=== PATIENT | male | born 1965 | race Caucasian/White ===

== ENCOUNTER 2020-11-26 17:13 | Emergency (ER) | payer OTHER ==
[2020-11-26] MEDS ORDERED: METOPROLOL 5 MG/5 ML VIAL IVP STA ×2 (17:33→17:59)
[2020-11-26 17:38] LABS: BASOPHILS % (AUTO) 0.7 %; EOSINOPHILS # (AUTO) 0.1 10^3/uL (0.0-0.7); HCT - HEMATOCRIT 43.6 % (42.0-52.0); HGB - HEMOGLOBIN 14.1 g/dL (14.0-18.0); LYMPHOCYTES # (AUTO) 1.9 10^3/uL (1.5-3.5); LYMPHOCYTES % (AUTO) 31.7 %; MEAN CORPUSCULAR HGB CONC 32.3 g/dL (32.0-36.0); MEAN CORPUSCULAR VOLUME 86.5 fL (80.0-94.0); MEAN PLATELET VOLUME 9.5 fL (7.4-11.4); MONOCYTES # (AUTO) 0.4 10^3/uL (0.0-1.0); NEUTROPHILS # (AUTO) 3.6 10^3/uL (1.5-6.6); NEUTROPHILS % (AUTO) 59.4 %; PLT - PLATELET COUNT 213 10^3/uL (130-450); RED BLOOD COUNT 5.04 10^6/uL (4.70-6.10); RED CELL DISTRIBUTION WIDTH 13.2 % (12.0-15.0)
[2020-11-26 17:51] LABS: ALBUMIN 3.8 g/dL (3.2-5.5); ALBUMIN/GLOBULIN RATIO 1.4 (1.0-2.2); BILIRUBIN,TOTAL 1.3 mg/dL (0.2-1.0); CALCIUM 8.9 mg/dL (8.5-10.3); TOTAL PROTEIN 6.5 g/dL (6.7-8.2)
--- NOTE | 2020-11-26 17:58 | XRAY Report ---
PROCEDURE: Chest 1 View X-Ray INDICATIONS: Chest Pain TECHNIQUE: One view of the chest was acquired. COMPARISON: FINDINGS: Surgical changes and devices: None. Lungs and pleura: No pleural effusions or pneumothorax. Lungs are mildly edematous. Mediastinum: Mediastinal contours appear normal. Heart size is globally enlarged to a mild degree. Bones and chest wall: No suspicious bony lesions. Overlying soft tissues appear unremarkable. IMPRESSION: Acute CHF pattern superimposed on chronic CHF. Reviewed by: Mamadou Vick MD on 11/26/2020 5:57 PM PDT Approved by: Mamadou Vick MD on 11/26/2020 5:57 PM PDT Station ID: [id number]
[2020-11-26] MEDS ORDERED: FUROSEMIDE 20 MG/2 ML VIAL IVP STA ×2 (18:03→18:39)
--- NOTE | 2020-11-26 18:05 | ED Physician Documentation ---
History of Present Illness - Stated complaint Stated Complaint: SOA,WEAKNESS,SWELLING - Chief complaint Chief Complaint: Cardiac - Additonal information Additional information: 55-year-old male presents the emergency department for evaluation of 3 weeks progressive orthopnea and dyspnea. He reports that about 5 years ago he was diagnosed with atrial fib. He did present to a hospital in [place] at that time and was cardioverted and had remained in what he thought was sinus rhythm until now. He states that 3 weeks ago he got the mode during a vaccine and 2 days later began having bilateral leg swelling orthopnea and dyspnea. He denies exertional chest pain. Is a non-smoker. He does have a history of hypertension and morbid obesity. Meds: Metoprolol succinate 25 mg daily, 81 mg aspirin daily lisinopril 5 mg daily Lexapro 30 mg daily Review of Systems Constitutional: denies: Fever, Chills Eyes: reports: Reviewed and negative Ears: reports: Reviewed and negative Nose: reports: Reviewed and negative Throat: reports: Reviewed and negative Cardiac: reports: Palpitations, Pedal edema. denies: Chest pain / pressure, Calf pain Respiratory: reports: Dyspnea. denies: Cough, Hemoptysis, Wheezing GI: denies: Abdominal Pain, Abdominal Swelling, Nausea, Vomiting : denies: Dysuria, Frequency, Hesitancy Skin: denies: Rash, Lesions Musculoskeletal: reports: Reviewed and negative Neurologic: reports: Reviewed and negative PD PAST MEDICAL HISTORY - Present Medications Home Medications: Ambulatory Orders Medication Instructions Recorded Confirmed Aspirin [[place] Aspirin] 81 mg PO DAILY 11/26/20 11/26/20 Escitalopram [Lexapro] 30 mg PO DAILY 11/26/20 11/26/20 Furosemide [Lasix] 20 mg PO DAILY #30 tablet 11/26/20 Metoprolol Succinate [Toprol Xl] 50 mg PO DAILY #30 tablet 11/26/20 Metoprolol Tartrate [Lopressor] 25 mg PO BID 11/26/20 11/26/20 Rivaroxaban [Xarelto] 20 mg PO QDDINNER #30 tablet 11/26/20 lisinopriL [Lisinopril] 10 mg PO DAILY 11/26/20 11/26/20 - Allergies Allergies/Adverse Reactions: Allergies Allergy/AdvReac Type Severity Reaction Status Date / Time codeine Allergy Nausea Verified 11/26/20 17:17 PD ED PE EXPANDED - General General: Alert, No acute distress, Other (obese) - Cardiac Cardiac: Tachy, Irregularly irregular, Murmur Present, Radial strong equal, Pedal strong equal, Cap refill < 2 sec - Respiratory Respiratory: Clear to ausultation cleopatra. No: Distress, Labored - Abdomen Abdomen: Normal Bowel sounds. No: Tender to palpation - Extremities Extremities: Pedal edema bilateral (Pitting edema bilateral lower extremities.), Pedal Pulses Present. No: Right calf TTP/cord, Left calf TTP/cord - Neuro Neuro: Alert and Oriented X 3, CNII-XII intact - GCS Eye Opening: Spontaneous Motor: Obeys Commands Verbal: Oriented Total: 15 Results - Vitals Vitals: Vital Signs - 24 hr 11/26/20 11/26/20 11/26/20 17:19 17:36 17:45 Temperature 37.0 C Heart Rate 136 H 130 H 125 H Respiratory 18 18 21 Rate Blood Pressure 95/70 149/98 H 135/93 H O2 Saturation 100 98 98 11/26/20 11/26/20 11/26/20 17:50 18:02 18:15 Temperature Heart Rate 108 H 129 H 106 H Respiratory 15 22 20 Rate Blood Pressure 140/108 H 124/107 H 132/96 H O2 Saturation 98 97 97 11/26/20 11/26/20 11/26/20 18:20 18:45 19:15 Temperature Heart Rate 114 H 112 H 107 H Respiratory 20 20 17 Rate Blood Pressure 129/93 H 135/109 H 121/89 H O2 Saturation 97 98 97 11/26/20 19:30 Temperature Heart Rate 112 H Respiratory 25 H Rate Blood Pressure 118/96 H O2 Saturation 94 Oxygen O2 Source Room air - EKG (time done) 1722 Rate: Rate (enter#) (147) Rhythm: Atrial fibrillation [place]: Normal Intervals: Normal TN, Prolonged QT QRS: Normal Ischemia: Non specific changes Compare to prior EKG: Old EKG unavailable Computer interpretation: Agree with computer - Labs Labs: Laboratory Tests 11/26/20 11/26/20 11/26/20 17:31 17:31 17:31 WBC 6.0 RBC 5.04 Hgb 14.1 Hct 43.6 MCV 86.5 MCH 28.0 MCHC 32.3 RDW 13.2 Plt Count 213 MPV 9.5 Neut # (Auto) 3.6 Lymph # (Auto) 1.9 [place] # (Auto) 0.4 Eos # (Auto) 0.1 Baso # (Auto) 0.0 Absolute Nucleated RBC 0.00 Nucleated RBC % 0.0 Sodium 136 Potassium 4.0 Chloride 101 Carbon Dioxide 27 Anion Gap 8.0 BUN 16 Creatinine 1.0 Estimated GFR (MDRD) 78 L Glucose 95 Calcium 8.9 Total Bilirubin 1.3 H AST 23 ALT 33 Alkaline Phosphatase 56 Troponin I High Sens 22.7 H* B-Natriuretic Peptide Total Protein 6.5 L Albumin 3.8 Globulin 2.7 Albumin/Globulin Ratio 1.4 Lipase 27 11/26/20 17:31 WBC RBC Hgb Hct MCV MCH MCHC RDW Plt Count MPV Neut # (Auto) Lymph # (Auto) [place] # (Auto) Eos # (Auto) Baso # (Auto) Absolute Nucleated RBC Nucleated RBC % Sodium Potassium Chloride Carbon Dioxide Anion Gap BUN Creatinine Estimated GFR (MDRD) Glucose Calcium Total Bilirubin AST ALT Alkaline Phosphatase Troponin I High Sens B-Natriuretic Peptide 559 H Total Protein Albumin Globulin Albumin/Globulin Ratio Lipase - Rads (name of study) CXR Radiology: Final report received (Acute CHF superimposed on chronic) PD MEDICAL DECISION MAKING - ED course ED course: 55-year-old male who has a history of atrial fib presents the emergency department with 3 weeks of dyspnea on exertion and bilateral lower extremity swelling. This gentleman is typically rate controlled on 25 mg of Metroprolol's succinate daily. He is not anticoagulated. He initially presented to an outpatient walk-in clinic where they noted atrial for with a rapid rate in the 130s and 140s thus he was advised evaluation here in the ER. On presentation he does note note to be in atrial fib with a rate of 147. Initially we attempted 2 mg of Metroprolol IV due to a soft blood pressure. This did reduce his heart rate into the 120s. I did follow that up with 5 mg of Metroprolol which successfully reduced his heart rate to the 90s and low 100s. Screening labs show that he does have CHF as evidenced by an elevated BNP. His chest x-ray also suggests acute on chronic heart failure. He does have bilateral lower extremity edema. His EKG is nonischemic. High-sensitivity troponin is 22. This likely represents mild heart strain in the setting of CHF. He denies chest pain. Lower suspicion for ACS This gentleman just moved to [facility] in about 4 weeks ago. CHADS2 vasc score of 2 Putting him at moderate risk of acute stroke. I did discuss this case with our day hospitalist Dr. Correa. It is appropriate to consider admitting this patient to the hospital for a CHF exacerbation. I presented this option to the patient however he would really prefer to be discharged home. I feel that this is an appropriate given his otherwise relative stability and improved heart rate control here in the ER. He was given a total of 40 mg of Las ix here in the emergency department and observed for an additional 90 minutes. Following the 40 of Lasix he was able to ambulate and reported that his dyspnea had improved. Therefore at this time he will be discharged home. He will be started on 20 mg of Lasix daily as well as Xarelto for anticoagulation. I will increase his metoprolol succinate to 50 mg daily. He is advised to have his labs redrawn in 1 week to ensure stable kidney and potassium levels. He will return immediately to the ER if his symptoms are worsening. Departure - Departure Disposition: 01 Home, Self Care Clinical Impression: Atrial fibrillation Qualifiers: Atrial fibrillation type: unspecified chronic Qualified Code(s): I48.20 - Chronic atrial fibrillation, unspecified CHF (congestive heart failure) Qualifiers: Heart failure type: unspecified Heart failure chronicity: unspecified Qualified Code(s): I50.9 - Heart failure, unspecified Condition: Stable Record reviewed to determine appropriate education?: Yes Instructions: Atrial Fibrillation Dc Follow-Up: [facility] [Provider Group] Prescriptions: Furosemide [Lasix] 20 mg PO DAILY #30 tablet Metoprolol Succinate [Toprol Xl] 50 mg PO DAILY #30 tablet Rivaroxaban [Xarelto] 20 mg PO QDDINNER #30 tablet Comments: Urbano stockton were seen in the ER today for shortness of air for the last 3 weeks. As we discussed this is likely due to atrial fibrillation that is not well controlled. You have developed mild heart failure. You were offered the opportunity for admission to the hospital but after being given a little bit of a diuretic you did feel better. At this time it is okay to discharge you home however if your shortness of breath is not improving while at home it is important you return immediately to the ER. In order to help better manage the atrial fibrillation we will increase your Metroprolol dosing to 50 mg once daily. Please fill this and begin taking tomorrow in the morning. Because you are at Increased risk for stroke with your type of atrial fibrillation it is important that you be started on an anticoagulant or a medication that prevents you from forming clots. Your first dose of Xarelto was given here in the emergency department tonight. Please fill the prescription tomorrow and begin taking it every day in the evening with dinner. I would also like you to begin taking Lasix which is a diuretic or a medication that should help get off water weight. Please take once daily. It is also important that you begin to weigh yourself every day to check weight gain or loss. Because you are being started on a medication to prevent clots if you develop any sudden severe headache, have unexplained bruising or bleeding in your arms or legs, develop black or bloody stools or have any falls in which she strike her head it is important that you come immediately to the emergency department. Is very important that you schedule follow-up with a primary provider within the next week. Because we are starting you on Lasix it is important that your labs get rechecked to make sure that your potassium and kidney values are stable. Discharge Date/Time: 11/26/20 20:07
[2020-11-26 19:39] VITALS: BP 118/96
[2020-11-26] MEDS ORDERED: RIVAROXABAN 15 MG TABLET PO STA (19:47)
== END 2020-11-26 20:07 | disposition home or self-care (01) ==
LOC: ED 17:13
DX: I48.20 Chronic atrial fibrillation, unspecified (principal); I45.81 Long QT syndrome; I11.0 Hypertensive heart disease with heart failure; I50.9 Heart failure, unspecified; E66.01 Morbid (severe) obesity due to excess calories; Z68.43 Body mass index [BMI] 50.0-59.9, adult; Z79.82 Long term (current) use of aspirin
CPT/HCPCS: 36415; 71045; 80053; 83690; 83880; 84484; 85025; 93005; 96374; 96375; 96376; 99284; A9270

== ENCOUNTER 2021-10-18 10:52 | Outpatient (CLI) | payer OTHER ==
--- NOTE | 2021-10-18 11:45 | SLEEP CARE CONSULTATION ---
Information from patient questionnaire entered by Carli Avila. I have reviewed and concur with the information entered by Carli Avila. This document represents the service I personally performed and the decisions made by me, Elaina Kirkland ARNP. History of Present Illness Service Date and Time: 10/18/2021 1052 Reason for Visit: New patient (INITIAL, ONSET 06/1991, UNTREATED EDDIE) Chief Complaint: reports: Unrefreshed sleep, Snoring, Excessive daytime sleepine ss, Observed pauses in breathing, Fatigue, Frequent awakenings at night Date of Onset: 06/1991 Usual bedtime: 8-9 Time it takes to fall asleep: 20 MIN Snores at night: Yes Observed to quit breathing while asleep: Yes Sleeps alone due to snoring: No Number of times waking at night: 2 Reasons for waking at night: reports: Bathroom (on diuretics), Other (UNKNOWN). denies: Choking, Snoring, Gasping for air Toss, Turn, or Twitch while sleeping: Yes Recalls having dreams: Yes Usually gets out of bed at: 5AM Feels refreshed in the morning: No Morning headache: No Sleepy or fatigued during the day: Yes Ever fallen asleep while driving: No (no drowsy driving) Takes day naps: Yes (5 days week. 1-2 hours; one on Sat/Sun too) Dreams during day naps: No Prior sleep studies: Yes Year and Where: 1995 Additional HPI information: I had the pleasure of seeing Tati BENDER today regarding the possibility of him having a sleep disorder. His current complaints are excessive daytime sleepiness, fatigue, frequent awakenings at night, insomnia, observed pauses in breathing, snoring and unrefreshed sleep. He had a sleep study in 1995 and he did try the CPAP for about a month but could not tolerate the mask. He felt like it kept him from breathing, too much "in his face" and hard to get to sleep. He comes back because he has Afib, EDDIE and is obese. He knows he needs to get treatment to he "doesn't ". He has gained about 150 pounds since his last sleep study. - Parasomnia Symptoms Ever been unable to move upon waking from sleep: No Walks in sleep: No Talks in sleep: Yes Ever acted out dreams in sleep: No Ever felt weak in the knees when startled or emotional: No Bothered by creepy, crawly, restless sensations in legs: No Problems with memory or concentration: No CPAP Compliance Data Compliance data discussion: He does not uses CPAP or other therapy for his diagnosed sleep apnea. He thinks he was a mild severity in 1995. Subjective Initial [place] Sleepiness Scale score: 19 (2021) Past Medical History Past Medical History: reports: Hypertension, Congestive Heart Failure, Coronary Heart Disease, Arrythmia (Atrial Fibrillation), Anxiety, Depression Social History The patient's occupation is a [employer]. Patient is and lives in [place]. Have you smoked in the past 12 months: No Alcohol use: No Caffeine use: No Family History Family history of sleep disordered breathing: Yes Family Hx Sleep Apnea: Mother: Snoring, Sleep apnea - Treated, Father: Snoring, Sleep apnea - Treated, Sibling: Snoring, Sleep apnea - Treated, Grandparent: Snoring, Sleep apnea - Treated Allergies and Home Medications Drug allergies reviewed: Yes (codiene) Home medication list reviewed: Yes Allergy and home medication list: Allergies codeine Allergy (Verified 11/26/20 17:17) Nausea Medications: Metoprolol 20 mg in am, 10 mg in pm Amiodarone 20 mg x 2 daily Torsemide 20 mg x 3 daily escitalopram 30 mg daily Lisinopril 20 mg daily -statin for cholesterol Xarelto Review of Systems Weight gain over past 5 years: 150 Cardiovascular: reports: irregular heart rate or pulse, leg or foot swelling Neurological: denies: headaches Psychiatric: reports: anxiety, depression Ear/Nose/Throat: reports: wisdom teeth removed. denies: tonsillectomy Musculoskeletal: reports: joint pain Physical Exam Vital signs obtained and entered by: Lamar AVILA MA Blood Pressure: 122/78 (MANUAL) Cuff size: LARGE CUFF Heart Rate: 55 O2 Saturation: 96 Height: 6 ft 3 in Weight: 427 lb Body Mass Index: 53.4 BMI Classification: Morbidly Obese Neck circumference: 21 (inches) Mouth and throat: narrow oropharynx Soft palate: long Hard palate: normal Uvula: normal Uvula visualization: 50% Mallampati Class II Tongue: normal in size Tonsils: small Neck: normal w/o lymphadenopathy or thyromegaly Heart: irregular rhythm, murmur Lungs: clear bilaterally Impression and Plan 1. Suspected Obstructive Sleep Apnea-Hypopnea Syndrome, as previously diagnosed in 1995 and as suggested by a history of loud and irregular snoring, observed cessation of breath while asleep, frequent awakening during the night, unrefreshed sleep, cognitive impairment, and excessive daytime sleepiness. Patient voices that he does not think he will be able to sleep with all the leads on because he did not sleep but about 4 hours with his last one. I offered a single dose of Zolpidem for the night of the study. He states he has never taken zolpidem but those kind of medications usually really make him 'zonked out' the next day. I will order a smaller dose of 2.5 mg zolpidem and he agreed that this would be fine. Narrow oropharynx and obesity are common predisposing factors for obstructive sleep apnea-hypopnea syndrome. I recommend proceeding to polysomnography to confirm the diagnosis and to assess severity. If the patient has significant sleep disordered breathing, a manual CPAP titration study will also be performed to find the optimal treatment pressure. I informed the patient of what the sleep studies involve and after some discussion, obtained agreement to proceed. The pathophysiology of obstructive sleep apnea-hypopnea syndrome was discussed with the patient and health risks of cardiovascular and cerebrovascula r disease if not treated. Risks of drowsy driving discussed in detail and patient advised to avoid long distance driving and to gut puller at the first sign of drowsiness. Patient agreed to plan. * Schedule polysomnography. * Prescription for 2.5 mg Zolpidem on night of study to help him sleep * Avoid long distance driving or driving when feeling sleepy. * Avoid alcohol, sedative and muscle relaxant around bedtime. * Attempt to lose weight. * Review instructions provided by trained office staff on how to prepare for the sleep study. * Return for follow-up after sleep study completed. Counseling Topics: Weight loss health impact Visit Type: In Office Time Spent with Patient (minutes): 38 Provider Statement: I spent 100% of the Face to Face Visit with the patient with greater than 50% spent counseling the patient and coordination of care.
[2021-10-18 11:46] VITALS: BP 122/78
== END 2021-10-18 10:53 | disposition home or self-care (01) ==
LOC: SC 10:52
PROVIDERS: ATTEND Nurse Practitioner Family
DX: G47.33 Obstructive sleep apnea (adult) (pediatric) (principal); I48.91 Unspecified atrial fibrillation; E66.01 Morbid (severe) obesity due to excess calories; Z68.43 Body mass index [BMI] 50.0-59.9, adult
CPT/HCPCS: 99203; 99212